=== PATIENT | female | born 1960 | race Caucasian/White ===

== ENCOUNTER → 2023-04-29 09:58 | Outpatient (REF) | payer OTHER, SELFPAY | LOC: RAD 09:58 | PROVIDERS: ATTENDING PHYSICIAN Student in an Organized Health Care Education/Training Program | DX: M25.641 Stiffness of right hand, not elsewhere classified (principal); M25.642 Stiffness of left hand, not elsewhere classified | CPT/HCPCS: 73130 ==

== ENCOUNTER → 2023-05-08 06:43 | Outpatient (REF) | payer OTHER, SELFPAY | LOC: HWRAD 06:43 | PROVIDERS: ATTENDING PHYSICIAN Student in an Organized Health Care Education/Training Program | DX: E04.1 Nontoxic single thyroid nodule (principal) | CPT/HCPCS: 76536 ==

== ENCOUNTER → 2023-05-14 17:24 | Outpatient (REF) | payer OTHER, SELFPAY | LOC: MRI 3T 17:24 | PROVIDERS: ATTENDING PHYSICIAN Student in an Organized Health Care Education/Training Program | DX: D32.9 Benign neoplasm of meninges, unspecified (principal) | CPT/HCPCS: 70553; A9575 ==

== ENCOUNTER → 2023-05-30 17:05 | Outpatient (REF) | payer OTHER, SELFPAY | LOC: HWRAD 17:05 | PROVIDERS: ATTENDING PHYSICIAN Student in an Organized Health Care Education/Training Program | DX: M25.461 Effusion, right knee (principal); M25.561 Pain in right knee | CPT/HCPCS: 73564 ==

== ENCOUNTER → 2023-06-28 09:14 | Outpatient (REF) | payer OTHER, SELFPAY | LOC: HWRAD 09:14 | PROVIDERS: ATTENDING PHYSICIAN Student in an Organized Health Care Education/Training Program; FAMILY PHYSICIAN Student in an Organized Health Care Education/Training Program | DX: M25.571 Pain in right ankle and joints of right foot (principal) | CPT/HCPCS: 73700 ==

== ENCOUNTER 2023-08-21 06:25 | Day surgery (SDC) | payer OTHER, SELFPAY ==
[2023-08-09 07:17] VITALS: BMI 28.0
[2023-08-09 09:50] LABS: Hematocrit 44.3 % (37.0-47.0); Hemoglobin 14.5 g/dL (12.0-16.0); Mean Corp Hgb Conc. 32.7 g/dL (33.0-37.0); Mean Corpuscular Hgb 30.7 pg (27.0-31.0); Mean Corpuscular Volume 93.9 fL (81.0-99.0); Mean Platelet Volume 11.6 fL (7.4-10.4); Platelet Count 235 10^3/uL (130-400); Red Blood Cell Count 4.72 10^6/uL (4.20-5.40); Red Cell Dist. Width 13.2 % (11.5-14.5); White Blood Cell Count 6.5 10^3/uL (4.8-10.8)
[2023-08-09 10:10] LABS: Blood Urea Nitrogen 15 mg/dl (7-17); Calcium 9.8 mg/dl (8.4-10.2); Carbon Dioxide 28 mmol/L (22-30); Chloride 105 mmol/L (98-107); Estimated Creatinine Clearance 66 ml/min; Glucose 87 mg/dl (70-99); Sodium 141 mmol/L (135-145); eGFR > 60.00
[2023-08-21] VITALS (11 sets, daily range): BP systolic 142–188; BP diastolic 65–87; BMI 28.0
[2023-08-21] MEDS: NORMOSOL-R 1000 IV (08:50)
[2023-08-21] MEDS: TYLENOL 1000 MG PO (08:53)
[2023-08-21] MEDS: CELEBREX 200 MG PO (08:53)
[2023-08-21] MEDS: DILAUDID 0.25 MG IV (15:36)
[2023-08-21] MEDS: ZOFRAN 4 MG IV (15:48)
--- NOTE | 2023-08-21 16:25 | SUR.PHASEI ---
patient received in pacu with local, and general, difficult to arouse but denies pain, restless initially for 40 minutes, though not awake and alert. denies pain. at 1515 awake and c/o aching pain 08/18 - Dr Perez called to see if pt qualified
for block - not at this time. Dilaudid 0.25mg given IV, at 1548 - nausea - Zofran 4mg IV with relief. sleepy after zofran, needed to restart O2 briefly. Encourage deep breathing. Encourage patient to use minimal narcotics because of sensitivity
with somulence and also nausea. Agrees - ache is tolerable and chooses to go to [facility] and discharge home
[2023-08-21] MEDS: TYLENOL 650 MG PO (16:28)
== END 2023-08-21 17:42 | disposition home or self-care (01) ==
LOC: SDS 06:25
PROVIDERS: ATTENDING PHYSICIAN Student in an Organized Health Care Education/Training Program; FAMILY PHYSICIAN Student in an Organized Health Care Education/Training Program
DX: M19.071 Primary osteoarthritis, right ankle and foot (principal); M67.01 Short Achilles tendon (acquired), right ankle; M21.6X1 Other acquired deformities of right foot
CPT/HCPCS: 27702; 27687; 28300; 36415; 73600; 76000; 80048; 85027; 93005

== ENCOUNTER 2023-11-05 17:51 | Outpatient (RCR) | payer OTHER, SELFPAY | END 2023-11-05 23:59 | disposition home or self-care (01) | LOC: RPT 17:51 | PROVIDERS: ATTENDING PHYSICIAN Student in an Organized Health Care Education/Training Program; FAMILY PHYSICIAN Student in an Organized Health Care Education/Training Program | DX: Z47.1 Aftercare following joint replacement surgery (principal); Z73.6 Limitation of activities due to disability; Z96.661 Presence of right artificial ankle joint | CPT/HCPCS: 97110; 97112; 97116; 97140; 97162; 97530 ==

== ENCOUNTER 2023-12-03 17:44 | Outpatient (RCR) | payer OTHER, SELFPAY | END 2023-12-03 23:59 | disposition home or self-care (01) | LOC: RPT 17:44 | PROVIDERS: ATTENDING PHYSICIAN Student in an Organized Health Care Education/Training Program; FAMILY PHYSICIAN Student in an Organized Health Care Education/Training Program | DX: Z47.1 Aftercare following joint replacement surgery (principal); Z96.661 Presence of right artificial ankle joint; Z73.6 Limitation of activities due to disability | CPT/HCPCS: 97110; 97112; 97140 ==

== ENCOUNTER 2024-01-07 17:51 | Outpatient (RCR) | payer OTHER, SELFPAY | END 2024-01-07 23:59 | disposition home or self-care (01) | LOC: RPT 17:51 | PROVIDERS: ATTENDING PHYSICIAN Student in an Organized Health Care Education/Training Program; FAMILY PHYSICIAN Student in an Organized Health Care Education/Training Program | DX: Z47.1 Aftercare following joint replacement surgery (principal); Z96.661 Presence of right artificial ankle joint; Z73.6 Limitation of activities due to disability | CPT/HCPCS: 97010; 97110; 97112; 97140 ==

== ENCOUNTER 2024-01-28 17:48 | Outpatient (RCR) | payer OTHER, SELFPAY | END 2024-01-28 23:59 | disposition home or self-care (01) | LOC: RPT 17:48 | PROVIDERS: ATTENDING PHYSICIAN Student in an Organized Health Care Education/Training Program; FAMILY PHYSICIAN Student in an Organized Health Care Education/Training Program | DX: Z47.1 Aftercare following joint replacement surgery (principal); Z96.661 Presence of right artificial ankle joint; Z73.6 Limitation of activities due to disability | CPT/HCPCS: 97010; 97110; 97140 ==

== ENCOUNTER → 2024-03-02 16:13 | Outpatient (REF) | payer OTHER, SELFPAY | LOC: PAVMRI 16:13 | PROVIDERS: ATTENDING PHYSICIAN Student in an Organized Health Care Education/Training Program; FAMILY PHYSICIAN Student in an Organized Health Care Education/Training Program | DX: M79.671 Pain in right foot (principal); M25.571 Pain in right ankle and joints of right foot | CPT/HCPCS: 73718; 73721 ==

== ENCOUNTER 2024-04-02 18:00 | Outpatient (RCR) | payer OTHER, SELFPAY | END 2024-04-02 23:59 | disposition home or self-care (01) | LOC: RPT 18:00 | PROVIDERS: ATTENDING PHYSICIAN Student in an Organized Health Care Education/Training Program; FAMILY PHYSICIAN Student in an Organized Health Care Education/Training Program | DX: Z47.1 Aftercare following joint replacement surgery (principal); Z73.6 Limitation of activities due to disability; R26.2 Difficulty in walking, not elsewhere classified; M62.81 Muscle weakness (generalized); M25.571 Pain in right ankle and joints of right foot; Z96.661 Presence of right artificial ankle joint | CPT/HCPCS: 97010; 97110; 97530 ==

== ENCOUNTER 2024-04-30 17:47 | Outpatient (RCR) | payer OTHER, SELFPAY | END 2024-04-30 23:59 | disposition home or self-care (01) | LOC: RPT 17:47 | PROVIDERS: ATTENDING PHYSICIAN Student in an Organized Health Care Education/Training Program; FAMILY PHYSICIAN Student in an Organized Health Care Education/Training Program | DX: Z47.1 Aftercare following joint replacement surgery (principal); Z73.6 Limitation of activities due to disability; R26.2 Difficulty in walking, not elsewhere classified; M62.81 Muscle weakness (generalized); M25.571 Pain in right ankle and joints of right foot; Z96.661 Presence of right artificial ankle joint | CPT/HCPCS: 97110; 97112; 97530 ==

== ENCOUNTER → 2024-05-29 06:45 | Outpatient (REF) | payer OTHER, SELFPAY | LOC: RAD 06:45 | PROVIDERS: ATTENDING PHYSICIAN Student in an Organized Health Care Education/Training Program; FAMILY PHYSICIAN Student in an Organized Health Care Education/Training Program | DX: I87.2 Venous insufficiency (chronic) (peripheral) (principal) | CPT/HCPCS: 93971 ==

== ENCOUNTER 2024-06-01 17:50 | Outpatient (RCR) | payer OTHER, SELFPAY | END 2024-06-01 23:59 | disposition home or self-care (01) | LOC: RPT 17:50 | PROVIDERS: ATTENDING PHYSICIAN Student in an Organized Health Care Education/Training Program; FAMILY PHYSICIAN Student in an Organized Health Care Education/Training Program | DX: Z47.1 Aftercare following joint replacement surgery (principal); Z96.661 Presence of right artificial ankle joint; Z73.6 Limitation of activities due to disability; R26.2 Difficulty in walking, not elsewhere classified; M62.81 Muscle weakness (generalized); M25.571 Pain in right ankle and joints of right foot | CPT/HCPCS: 97110; 97112 ==

== ENCOUNTER → 2024-07-15 07:19 | Outpatient (REF) | payer OTHER, SELFPAY ==
--- NOTE | 2024-07-15 12:45 | EEG.RPT ---
Electroencephalogram Report
Recording
Date of EE07/15/24
Type of EEG: Routine
Length of EEG recordin minutes
Done with Video Recording: Yes
Patient Status: Outpatient
Recording Conditions: Awake and Drowsy
Hyperventilation Performed: Yes
Photic Stimulation Performed: Yes
Report
LESS THAN 1 HOUR EEG REPORT
LESS THAN 1 HOUR EEG INTERPRETATION:
Unremarkable EEG for age
CLINICAL CORRELATION:
A normal EEG does not rule out a diagnosis of epilepsy. If clinical suspicion for seizure persists, a prolonged recording may be warranted.
Clinical correlation is advised.
METHODS:
A 21 channel digitized electroencephalogram (EEG) was performed using the 10/20 international system of electrode placement and one-lead of ECG recorded. Video was recorded. Persyst quantitative EEG analysis was performed.
ELECTROENCEPHALOGRAPHER IMPRESSION(S):
Quality of study
Good
Background
There was an unremarkable anterior-posterior voltage gradient of alpha frequency.
With eye opening the background activity changed to a low voltage mixture of frequencies.
There were no significant asymmetries of background activity noted.
Sleep
Drowsiness present
Hyperventilation
No driving
Photic Stimulation
No driving
ECG
Normal sinus rhythm
== END ==
LOC: EEG 07:19
PROVIDERS: ATTENDING PHYSICIAN Psychiatry & Neurology Neurology; FAMILY PHYSICIAN Student in an Organized Health Care Education/Training Program
DX: R40.4 Transient alteration of awareness (principal)
CPT/HCPCS: 95816

== ENCOUNTER → 2024-07-27 07:30 | Outpatient (REF) | payer OTHER, SELFPAY | LOC: MRI 07:30 | PROVIDERS: ATTENDING PHYSICIAN Psychiatry & Neurology Neurology; FAMILY PHYSICIAN Student in an Organized Health Care Education/Training Program | DX: R20.0 Anesthesia of skin (principal); R40.4 Transient alteration of awareness; D18.00 Hemangioma unspecified site | CPT/HCPCS: 70553; A9575 ==

== ENCOUNTER → 2024-08-22 08:56 | Outpatient (REF) | payer OTHER, SELFPAY | LOC: PAVMRI 08:56 | PROVIDERS: ATTENDING PHYSICIAN Psychiatry & Neurology Neurology; FAMILY PHYSICIAN Student in an Organized Health Care Education/Training Program | DX: M54.12 Radiculopathy, cervical region (principal) | CPT/HCPCS: 72141 ==

== ENCOUNTER → 2025-02-19 09:02 | Outpatient (REF) | payer OTHER, SELFPAY | LOC: RAD 09:02 | PROVIDERS: ATTENDING PHYSICIAN Student in an Organized Health Care Education/Training Program | DX: M79.644 Pain in right finger(s) (principal); M79.645 Pain in left finger(s) | CPT/HCPCS: 73130 ==